=== PATIENT | male | born 1950 | race Caucasian/White ===

== ENCOUNTER 2018-02-14 13:45 | Outpatient (RCR) | payer MEDICARE, OTHER, SELFPAY ==
--- NOTE | 2018-01-21 06:32 | PT.OIE ---
Current Diagnoses Dorsalgia, unspecified (01/19/18) Past Surgical History Status post hernia repair Status post knee surgery Status post knee surgery Provider Visit Care Team Role Provider Type Ayan Adhikari MD Attending Provider Physician Primary Care Provider Specialty: [facility] Address: [address] [place] [address], [facility] Email: [email or web address] Physical Therapy Initial Evaluation PT-OP-A Visit Information Start: 01/19/18 08:38 Freq: Status: Active Protocol: Document 01/19/18 13:00 AMB (Rec: 01/19/18 16:04 AMB [email or web address]) Out-Patient Physical Therapy Visit Information Visit Information Visit Type Initial Evaluation Visit Start Time 13:00 Visit Stop Time 13:45 Total Visit Minutes 45 Visit Number 1 Evaluation Information Evaluation Date 01/19/18 PT-OP-B Current Condition Start: 01/19/18 08:38 Freq: Status: Active Protocol: Document 01/19/18 13:00 AMB (Rec: 01/19/18 13:19 AMB [id number]) Current Condition History of Current Condition Current Complaints Left low back pain after lifting a large pot into the car 2 months ago History of Current Condition History of some back pain, recently exacerbated, but getting better. 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 Prior Treatments and Tests X-ray of lumbar spine revealed degenerative disc disease. Treatment Goals Patient/Caregiver Goals Reduce back pain for return to gardening, golfing Prior Functional Status Baseline Function- ADL's Independent Baseline Function- Mobility Independent Current Functional Impairments (Reported) Functional Limitations- Recreation/ gardening, lifting, golf Hobbies Personal Factors Other Personal Factors That May Effect History of hernia surgery, Therapy/Recovery history of L ACL tear, and surgical removal of R meniscus . PT-OP-C Subjective Start: 01/19/18 08:38 Freq: Status: Active Protocol: Document 01/19/18 13:00 AMB (Rec: 01/19/18 16:18 AMB [email or web address]) OP-PT Subjective Patient Comments Patient Comments Pt reports he would perfer to only have a few appointments, as he just wants to make sure he is not going to hurt himself with his return to sport. Patient Reported Progress Improving Patient Questionnaires Oswestry Low Back Index Oswestry Score 10 Oswestry Impairment 1 to 19% Impaired (Score 1-19) OP-PT Pain Assessment Pain Assessment Grid Paper Pain Assessment Grid Completed Yes Location Left Back Intensity 3 Scale Used Numeric (1 - 10) Description- Other numby PT-OP-F Manual Assessment Start: 01/19/18 08:38 Freq: Status: Active Protocol: Document 01/19/18 13:00 AMB (Rec: 01/19/18 16:25 AMB [email or web address]) Manual Assessments Soft Tissue Assessment Soft Tissue Mobility Assessment Tenderness with palpation over L QL. No pain with palpation into gluteals. Joint Mobility Assessment Joint Mobility Assessment Stiffness with PAs throughout lumbar spine but do not reproduce pain. PT-OP-K Range of Motion Start: 01/19/18 08:38 Freq: Status: Active Protocol: Document 01/19/18 13:00 AMB (Rec: 01/19/18 16:23 AMB [email or web address]) Lumbar Spine Range of Motion Lumbar Spine Active Degrees Testing Position standing Comments all WFL and do not reproduce pain PT-OP-L Special Tests Start: 01/19/18 08:38 Freq: Status: Active Protocol: Document 01/19/18 13:00 AMB (Rec: 01/19/18 16:28 AMB [email or web address]) Special Tests Lumbar Spine Special Tests Vishal Test Results negative bilaterally Hip Special Tests ALICE Test Results negative bilaterally PT-OP-M Strength Start: 01/19/18 08:38 Freq: Status: Active Protocol: Document 01/19/18 13:00 AMB (Rec: 01/19/18 16:23 AMB [email or web address]) Hip Strength Hip Manual Muscle Testing Right Flexion (L2) 5 Normal Extension (S1) 4+ Good+ Abduction 4+ Good+ Adduction 4+ Good+ Left Flexion (L2) 5 Normal Extension (S1) 4 Good Abduction 4+ Good+ Adduction 4- Good- Knee Strength Knee Manual Muscle Testing Right Flexion (S2) 4+ Good+ Extension (L3) 4 Good Left Flexion (S2) 5 Normal Extension (L3) 5 Normal PT-OP-Q Treatments Start: 01/19/18 08:38 Freq: Status: Active Protocol: Document 01/19/18 13:00 AMB (Rec: 01/19/18 16:06 AMB [email or web address]) Therapeutic Exercises Supine Exercises 1 Supine Exercise Name supine biking Reps/Minutes x 20 Prone Exercises 2 Prone Exercise Name georgie pose with SB Side left Reps/Minutes 30 sec x 2 1 Prone Exercise Name quadruped hip extension Reps/Minutes x10 Comments vc to avoid lumbar hyperextension PT-OP-T Assessment and Plan Start: 01/19/18 08:38 Freq: Status: Active Protocol: Document 01/19/18 13:00 AMB (Rec: 01/21/18 06:32 AMB [email or web address]) Physical Therapy Assessment Rehab Potential Rehabilitation Potential Excellent Evaluation Complexity Number of Personal Factors/Comorbidities 1-2 Number of Body Systems Impaired 3 Clinical Presentation at Evaluation Stable Impairments Impairments Activity Tolerance Pain Strength Goals 2 Impairment Strength Short Term Goal (STG) The patient will be independent with his HEP for strengthening his core and hips. STG Duration 4 weeks 1 Impairment Return to activity Short Term Goal (STG) The patient will perform 1 hour of yardwork with 2/10 pain or less. STG Duration 4 weeks Stave And Bolt Equalizer Goal (LTG) The patient will practice his golf swing for 30 minutes with 2/10 pain or less. LTG Duration 8 weeks Assessment Summary Assessment The patient presents with left sided low back pain. Pain does not reproduce with spinal range of motion or spinal palpation, but does reproduce with deep palpation of left QL . As his pain is decreasing already we will see him every other week to oversee his return to sport and pain free activities safely without flare up. Physical Therapy Plan Frequency and Duration Frequency of Treatment Every Other Week Duration of Treatment 8 weeks Plan of Care Start Date 01/19/18 Plan of Care End Date 03/16/18 Therapeutic Interventions Therapeutic Interventions Aquatic Therapy Home Exercise Program Manual Therapy Neuromuscular Re-education Self-Care/Home Management Therapeutic Activities Therapeutic Exercises Modalities Cold Pack/Ice Massage Electric Stimulation Hot Packs Ultrasound Next Visit Focus/Plan Next Note Type Treatment Note Next Visit Plan Progress HEP Please Sign and Return: I have reviewed this Plan of Care and certify that the skilled therapy services above are required to meet the patient?s needs. Physician Signature Date Printed Name and Credentials Clinical Instructor Signature Printed Name and Credentials
--- NOTE | 2018-02-14 13:45 | PT.OTN ---
Current Diagnoses Dorsalgia, unspecified (02/14/18) Physical Therapy Treatment Note PT-OP-A Visit Information Start: 01/19/18 08:38 Freq: Status: Active Protocol: Document 02/14/18 13:45 AMB (Rec: 02/14/18 13:46 AMB [id number]) Out-Patient Physical Therapy Visit Information Visit Information Visit Type Treatment Note Visit Start Time 13:45 Visit Stop Time 14:30 Total Visit Minutes 45 Visit Number 2 Evaluation Information Evaluation Date 01/19/18 PT-OP-B Current Condition Start: 01/19/18 08:38 Freq: Status: Active Protocol: Document 01/19/18 13:00 AMB (Rec: 01/19/18 13:19 AMB [id number]) Current Condition History of Current Condition Current Complaints Left low back pain after lifting a large pot into the car 2 months ago History of Current Condition History of some back pain, recently exacerbated, but getting better. 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 Prior Treatments and Tests X-ray of lumbar spine revealed degenerative disc disease. Treatment Goals Patient/Caregiver Goals Reduce back pain for return to gardening, golfing Prior Functional Status Baseline Function- ADL's Independent Baseline Function- Mobility Independent Current Functional Impairments (Reported) Functional Limitations- Recreation/ gardening, lifting, golf Hobbies Personal Factors Other Personal Factors That May Effect History of hernia surgery, Therapy/Recovery history of L ACL tear, and surgical removal of R meniscus . PT-OP-C Subjective Start: 01/19/18 08:38 Freq: Status: Active Protocol: Document 02/14/18 13:45 AMB (Rec: 02/18/18 07:01 AMB [email or web address]) OP-PT Subjective Patient Comments Patient Comments The patient states that his back pain has continued to decrease, so that he can do everything (yardwork, practice golf swing) that he wants to do, his knees are more of a limiting factor at this point. His wrist did bother him with child's pose. PT-OP-F Manual Assessment Start: 01/19/18 08:38 Freq: Status: Active Protocol: Document 01/19/18 13:00 AMB (Rec: 01/19/18 16:25 AMB [email or web address]) Manual Assessments Soft Tissue Assessment Soft Tissue Mobility Assessment Tenderness with palpation over L QL. No pain with palpation into gluteals. Joint Mobility Assessment Joint Mobility Assessment Stiffness with PAs throughout lumbar spine but do not reproduce pain. PT-OP-K Range of Motion Start: 01/19/18 08:38 Freq: Status: Active Protocol: Document 01/19/18 13:00 AMB (Rec: 01/19/18 16:23 AMB [email or web address]) Lumbar Spine Range of Motion Lumbar Spine Active Degrees Testing Position standing Comments all WFL and do not reproduce pain PT-OP-L Special Tests Start: 01/19/18 08:38 Freq: Status: Active Protocol: Document 01/19/18 13:00 AMB (Rec: 01/19/18 16:28 AMB [email or web address]) Special Tests Lumbar Spine Special Tests Vishal Test Results negative bilaterally Hip Special Tests ALICE Test Results negative bilaterally PT-OP-M Strength Start: 01/19/18 08:38 Freq: Status: Active Protocol: Document 01/19/18 13:00 AMB (Rec: 01/19/18 16:23 AMB [email or web address]) Hip Strength Hip Manual Muscle Testing Right Flexion (L2) 5 Normal Extension (S1) 4+ Good+ Abduction 4+ Good+ Adduction 4+ Good+ Left Flexion (L2) 5 Normal Extension (S1) 4 Good Abduction 4+ Good+ Adduction 4- Good- Knee Strength Knee Manual Muscle Testing Right Flexion (S2) 4+ Good+ Extension (L3) 4 Good Left Flexion (S2) 5 Normal Extension (L3) 5 Normal PT-OP-Q Treatments Start: 01/19/18 08:38 Freq: Status: Active Protocol: Document 02/14/18 13:45 AMB (Rec: 02/18/18 07:01 AMB [email or web address]) Therapeutic Exercises Supine Exercises 2 Supine Exercise Name lower trunk rotation Reps/Minutes 30x2 1 Supine Exercise Name supine biking Reps/Minutes x 20 Prone Exercises 3 Prone Exercise Name thread the needle Reps/Minutes 4 min 2 Prone Exercise Name georgie pose with SB Side left Reps/Minutes 30 sec x 2 Standing Exercises 1 Standing Exercise Name wall squats Reps/Minutes 5x5 Therapeutic Activity Therapeutic Activity 1 Name yardwork Reps/Minutes 15 min Comments moving the ladder, lifting pots, engaging TrA in functional activities Manual Therapy Treatment Manual Traction Lumbar Details long axis L leg Comments with instruction of how his could help PT-OP-T Assessment and Plan Start: 01/19/18 08:38 Freq: Status: Active Protocol: Document 02/14/18 13:45 AMB (Rec: 02/18/18 07:01 AMB [email or web address]) Physical Therapy Assessment Goals 2 Impairment Strength Short Term Goal (STG) The patient will be independent with his HEP for strengthening his core and hips. MET STG Duration 4 weeks 1 Impairment Return to activity Short Term Goal (STG) The patient will perform 1 hour of yardwork with 2/10 pain or less. GOAL MET STG Duration 4 weeks [facility] Goal (LTG) The patient will practice his golf swing for 30 minutes with 2/10 pain or less. PT HAS NOT DONE THIS LATELY BUT FEELS THAT HE COULD DO IT LTG Duration 8 weeks Assessment Summary Assessment Discussed body mechanics of yardwork at length, and how to engage deep stabilization muscles before lifting ladder for example. If pt wants to return to sport he will need to be consistent with exercise , he admits he has a tendency to overdo and then give up. But he does feel he is back to his baseline at this time. Physical Therapy Plan Discharge Physical Therapy Discharge Reasons Goals Met Discharge Comments The patient feels that he is ready to be independent with an exercise program.
== END 2018-04-22 11:41 ==
LOC: PHYS 13:45
PROVIDERS: PCP Family Medicine; Visit Provider Family Medicine
DX: M54.9 Dorsalgia, unspecified (principal)
CPT/HCPCS: 97110; 97161; 97530

== ENCOUNTER → 2018-03-12 07:40 | Outpatient (CLI) | payer MEDICARE, OTHER, SELFPAY ==
[2018-03-12 09:28] LABS: Cholesterol 181 mg/dL (140-199); HDL Cholesterol 50 mg/dL (40-60); LDL Cholesterol Calculated 113 mg/dL (<100); Triglycerides 89 mg/dL (35-150)
== END ==
PROVIDERS: PCP Family Medicine; Visit Provider Family Medicine
DX: I10 Essential (primary) hypertension (principal)
CPT/HCPCS: 36415; 80061

== ENCOUNTER → 2018-11-02 15:09 | Outpatient (CLI) | payer MEDICARE, OTHER, SELFPAY ==
--- NOTE | 2018-11-02 15:15 | DI.RAD.S_ITS ---
PROCEDURE: XR WRIST LT MIN 3V INDICATIONS: left wrist pain TECHNIQUE: 3 views of the wrist were acquired. COMPARISON: None. FINDINGS: Bones: No fractures or dislocations. No suspicious bony lesions. Prominent calcific focus projects adjacent to or involves the dorsal cortex of the second metacarpal. First CMC and triscaphe joint degeneration. Soft tissues: No suspicious soft tissue calcifications. IMPRESSION: Mild left wrist osteoarthritis. Prominent calcification along the shaft of the proximal second metacarpal, possibly dystrophic calcification versus sessile exostosis. Dictated by: Can Tyson M.D. on 11/02/2018 at 15:59 Approved by: Can Tyson M.D. on 11/02/2018 at 16:31
== END ==
PROVIDERS: PCP Family Medicine; Visit Provider Family Medicine
DX: M25.532 Pain in left wrist (principal); M19.032 Primary osteoarthritis, left wrist
CPT/HCPCS: 73110

== ENCOUNTER → 2019-03-23 14:28 | Outpatient (CLI) | payer OTHER, MEDICARE, SELFPAY ==
--- NOTE | 2019-03-23 14:33 | DI.ECHO.S_ITS ---
[facility]---------+ [facility] +---------+ : : [address] [place] : : : : [id number] : : : : Phone: [phone]---------+ Echocardiogram Report + + :Name: GREGORY MORIN Study Date: 03/23/2019 Height: 70 in : :[facility] Weight: 150 lb : : Gender: Male BSA: 1.8 m2 : :: 1950 Age: 68 yrs BP: 132/82 mmHg: :Reason For Study: aortic root dilatation : :Ordering Physician: Dr. Botello : :[place] Performed By: Shereen Conde : + + Interpretation Summary The left ventricle is normal in size. The ejection fraction is estimated to be 55-60%. There has been no significant change in LVEF since the previous study. The right ventricle is normal in size and function. There is mild mitral regurgitation. Compared to the prior echo study, there has been no change in the severity of mitral regurgitation. There is mild aortic regurgitation. Compared to the prior echo study, there has been an increase in the severity of aortic regurgitation. The aortic root is mildly dilated. 4.3 cm in diameter. In May 2017 it was 4.2 cm. The ascending aorta is mildly enlarged. 3.7 cm in diameter. No significant change from the previous study. The patient was in sinus bradycardia with heart rates between 45-50 bpm during the exam. Procedure: A two-dimensional transthoracic echocardiogram with color flow and Doppler was performed. The study quality was technically adequate. Comparison is made with the echocardiogram of 06/15/2017. The patient was in sinus bradycardia with heart rates between 45-50 bpm during the exam. Left Ventricle: Proximal septal thickening is noted. The left ventricle is normal in size. There is normal left ventricular wall thickness. There is no thrombus. The ejection fraction is estimated to be 55-60%. There has been no significant change since the previous study. There are no focal wall motion abnormalities. Diastolic parameters suggest probable normal left ventricular diastolic function and normal filling pressures. Right Ventricle: The right ventricle is normal in size and function. Atria: The left atrium is mildly dilated. The left atrium has mildly decreased in size since the prior echo exam. Right atrial size is normal. There is no Doppler evidence for an interatrial shunt. Mitral Valve: There is mild mitral annular calcification. Redundant elongated chordae are noted. There is mild mitral regurgitation. Compared to the prior echo study, there has been no change in the severity of mitral regurgitation. Aortic Valve: The aortic valve is trileaflet. The aortic valve opens well. There is mild aortic regurgitation. Compared to the prior echo study, there has been an increase in the severity of aortic regurgitation. Tricuspid Valve: The tricuspid valve leaflets are thin and pliable. There is a trace or physiologic amount of tricuspid regurgitation. The right ventricular systolic pressure is estimated to be at least 21 mmHg based on an estimated right atrial pressure of 3 mm Hg. Pulmonic Valve: The pulmonic valve leaflets are thin and pliable; valve motion is normal. There is trace pulmonic regurgitation. Great Vessels: The aortic root is mildly dilated. The ascending aorta is mildly enlarged. The aortic arch is normal in size. The IVC is of normal diameter and collapses greater than 50% with a sniff. This suggests a low right atrial pressure of 3 mm Hg. Pericardium/ Pleura There is no pericardial effusion. MMode/2D Measurements & Calculations LVIDd: 4.6 cm LVOT diam: 2.2 cm LVIDs: 2.8 cm Ao root diam: 4.3 cm FS: 39.8 % Aortic Jxn: 3.1 cm EPSS: 0.21 cm asc Aorta Diam: 3.7 cm IVSd: 1.0 cm Ao Arch Diam (Prox Trans): 2.7 cm LVPWd: 1.0 cm LV garcia. diameter/BSA (cm/m^2): 2.5 LV sys. diameter/BSA (cm/m^2): 1.5 LA A2 area: 21.2 cm2 RA long axis: 5.5 cm LA A4 area: 21.3 cm2 RA area: 19.5 cm2 LA length (vol): 5.5 cm RA vol: 58.3 ml LA vol: 69.1 ml RA : 31.6 ml/m2 LA vol index: 37.4 ml/m2 IVC diam: 1.3 cm RVD1 (basal): 3.9 cm RVD2 (mid): 2.7 cm TAPSE: 3.3 cm Doppler Measurements & Calculations Ao V2 max: 107.1 cm/sec LVOT Max Neftaly: 95.7 cm/sec Ao V2 mean: 75.3 cm/sec LV V1 max P.7 mmHg Ao max P.6 mmHg LV V1 VTI: 24.8 cm Ao mean P.5 mmHg BRIANA(I,D): 3.4 cm2 Ao V2 VTI: 27.8 cm BRIANA(V,D): 3.4 cm2 sev ratio: 0.89 BRIANA indexed to BSA (cm^2/m^2): 1.8 MV E max neftaly: 72.8 cm/sec TR max neftaly: 212.8 cm/sec MV A max neftaly: 44.6 cm/sec TR max P.1 mmHg MV E/A: 1.6 PA V2 max: 62.7 cm/sec Med Peak E' Neftaly: 8.1 cm/sec PA V2 mean: 46.7 cm/sec E/E' med: 9.0 PA mean P.97 mmHg Lat Peak E' Neftaly: 10.1 cm/sec PA Accel Time: 0.17 sec E/E' lat: 7.2 E/e' average: 8.1 MV dec time: 0.22 sec MV P1/2t: 65.2 msec MV P1/2t max neftaly: 73.2 cm/sec SV(LVOT): 93.5 ml MVA(P1/2t): 3.4 cm2 Reading Physician:11:43 AM
== END ==
PROVIDERS: PCP Family Medicine; Referring Provider Specialist; Visit Provider Family Medicine
DX: I08.0 Rheumatic disorders of both mitral and aortic valves (principal); I77.810 Thoracic aortic ectasia; R00.1 Bradycardia, unspecified
CPT/HCPCS: 93306

== ENCOUNTER → 2019-03-31 06:58 | Outpatient (CLI) | payer OTHER, SELFPAY ==
[2019-03-31 07:54] LABS: Add Manual Diff / Slide Review NO; Basophils Absolute Auto 0 /uL (0-100); Basophils Percent Auto 0.8 % (0-2); Eosinophils Absolute Auto 100 /uL (0-450); Eosinophils Percent Auto 2.3 % (2-4); Hematocrit 45.2 % (41-53); Hemoglobin 15.8 g/dL (13.5-17.5); Lymphocytes Absolute Auto 1900 /uL (1100-4500); Lymphocytes Percent Auto 35.6 % (25-40); Mean Corpuscular HGB Conc 34.9 % (30-36); Mean Corpuscular Volume 88.8 fL (80-100); Monocytes Absolute Auto 600 /uL (0-900); Monocytes Percent Auto 11.6 % (3-14); Neutrophils Absolute Auto 2700 /uL (1500-7000); Neutrophils Percent Auto 49.7 % (50-75); Platelet Count 202 X10^3/uL (150-400); Red Blood Cell Count 5.09 X10^6/uL (4.5-5.9); Red Cell Distribution Width 12.6 % (11.6-14.8); White Blood Cell Count 5.4 X10^3/uL (4.5-11.0)
[2019-03-31 08:22] LABS: Alanine Aminotransferase 33 IU/L (21-72); Albumin 4.4 g/dL (3.5-5.0); Albumin Globulin Ratio 1.5 (1.0-2.8); Alkaline Phosphatase 54 U/L (38-126); Aspartate Aminotransferase 33 IU/L (17-59); BUN Creatinine Ratio 17.5 (6-22); Bilirubin Total 0.8 mg/dL (0.2-1.3); Blood Urea Nitrogen 14 mg/dL (9-20); Calcium 9.5 mg/dL (8.4-10.2); Carbon Dioxide 30 mmol/L (22-32); Chloride 104 mmol/L (98-107); Cholesterol 128 mg/dL (140-199); Estimated Glomerular Filt Rate > 60.0 mL/min (>60); Globulin 2.9 g/dL (1.7-4.1); Glucose 93 mg/dL (80-110); HDL Cholesterol 51 mg/dL (40-60); HEMOLYSIS < 15 (0-50); LDL Cholesterol Calculated 64 mg/dL (<100); Potassium 4.5 mmol/L (3.4-5.1); Sodium 142 mmol/L (137-145); Total Protein 7.3 g/dL (6.3-8.2); Triglycerides 65 mg/dL (35-150)
[2019-03-31 08:51] LABS: Prostate Specific Antigen Scrn 3.06 ng/mL (0.1-4.0)
[2019-03-31 08:55] LABS: TSH w/ Reflex to FT4 1.62 uIU/mL (0.47-4.68)
== END ==
PROVIDERS: PCP Family Medicine; Visit Provider Family Medicine
DX: E78.2 Mixed hyperlipidemia (principal); I10 Essential (primary) hypertension; Z12.5 Encounter for screening for malignant neoplasm of prostate
CPT/HCPCS: 36415; 80053; 80061; 84443; 85025; G0103

== ENCOUNTER → 2020-03-20 08:03 | Outpatient (CLI) | payer OTHER, MEDICARE, SELFPAY ==
--- NOTE | 2020-03-20 08:07 | DI.RAD.S_ITS ---
PROCEDURE: XR KNEE LT 4V INDICATIONS: knee pain TECHNIQUE: 4 views of the knee were acquired. COMPARISON: None. FINDINGS: Bones: No fractures or dislocations. No suspicious bony lesions. Mild tricompartmental osteoarthritis with marginal osteophytosis. Soft tissues: No joint effusion. No suspicious soft tissue calcifications. IMPRESSION: Mild tricompartmental osteoarthritis. Dictated by: Mary Kay Miller MD, PhD on 03/20/2020 at 17:40 Approved by: Mary Kay Miller MD, PhD on 03/20/2020 at 17:41
--- NOTE | 2020-03-20 08:07 | DI.RAD.S_ITS ---
PROCEDURE: XR KNEE RT 4V INDICATIONS: knee pain TECHNIQUE: 4 views of the knee were acquired. COMPARISON: None. FINDINGS: Bones: No fractures or dislocations. No suspicious bony lesions. Severe tricompartmental osteoarthritis with joint space narrowing, subchondral sclerosis and marginal osteophytosis. Soft tissues: No joint effusion. No suspicious soft tissue calcifications. IMPRESSION: Severe tricompartmental osteoarthritis. Dictated by: Mary Kay Miller MD, PhD on 03/20/2020 at 17:39 Approved by: Mary Kay Miller MD, PhD on 03/20/2020 at 17:40
== END ==
PROVIDERS: PCP Family Medicine; Referring Provider Family Medicine; Visit Provider Family Medicine
DX: M25.561 Pain in right knee (principal); M25.562 Pain in left knee; M17.0 Bilateral primary osteoarthritis of knee
CPT/HCPCS: 73564

== ENCOUNTER → 2021-03-07 13:38 | Outpatient (CLI) | payer OTHER, SELFPAY ==
--- NOTE | 2021-03-07 13:56 | DI.ECHO.S_ITS ---
:Reason For Study: Aortic, Ascending Aneurysm : :Ordering Physician: ELAINE : :TARAS Performed By: Leoncio Leos : :Referring: TARAS HENRY : + + Interpretation Summary The left ventricle is normal in size and wall thickness. Left ventricular systolic function is normal. The ejection fraction is estimated to be 60-65%. There are no focal wall motion abnormalities. Diastolic parameters suggest probable normal left ventricular diastolic function and normal filling pressures. The right ventricle is normal in size and function. Pulmonary artery pressures cannot be estimated because of the lack of a measurable TR jet velocity but the IVC suggests a CVP of around 3 mmHg. Both atria are normal in size. There is mild mitral regurgitation. There is mild aortic regurgitation. There is no other significant valvular heart disease. The aortic root is mildly dilated. The ascending aorta is mildly enlarged. No significant changes since prior study. Procedure: A two-dimensional transthoracic echocardiogram with color flow and Doppler was performed. The study quality was technically adequate. Comparison is made with the echocardiogram of 03/23/2019. Left Ventricle: The left ventricle is normal in size and wall thickness. Left ventricular systolic function is normal. The ejection fraction is estimated to be 60-65%. There are no focal wall motion abnormalities. Diastolic parameters suggest probable normal left ventricular diastolic function and normal filling pressures. Right Ventricle: The right ventricle is normal in size and function. Atria: Both atria are normal in size. There is no Doppler evidence for an interatrial shunt. Mitral Valve: The mitral valve is normal in structure and function. There is mild mitral regurgitation. Aortic Valve: The aortic valve is normal in structure and function. There is mild aortic regurgitation. Tricuspid Valve: The tricuspid valve is normal in structure and function. No tricuspid regurgitation. Pulmonary artery pressures cannot be estimated because of the lack of a measurable TR jet velocity but the IVC suggests a CVP of around 3 mmHg. Pulmonic Valve: The pulmonic valve is normal in structure and function. There is trace pulmonic regurgitation. There is no other significant valvular heart disease. Great Vessels: The aortic root is mildly dilated. The ascending aorta is mildly enlarged. The IVC is of normal diameter and collapses greater than 50% with a sniff. This suggests a low right atrial pressure of 3 mm Hg. Pericardium/ Pleura There is no pericardial effusion. There is no pleural effusion. MMode/2D Measurements & Calculations LVIDd: 4.9 cm LVOT diam: 2.1 cm LVIDs: 3.1 cm Ao root diam: 4.1 cm FS: 36.6 % asc Aorta Diam: 3.6 cm IVSd: 0.78 cm LVPWd: 0.75 cm LV garcia. diameter/BSA (cm/m^2): 2.7 LV sys. diameter/BSA (cm/m^2): 1.7 LA A2 area: 16.2 cm2 RA long axis: 5.0 cm LA A4 area: 18.7 cm2 RA area: 14.3 cm2 LA length (vol): 5.4 cm RA vol: 35.1 ml LA vol: 47.8 ml RA : 18.9 ml/m2 LA vol index: 25.7 ml/m2 IVC diam: 1.8 cm TAPSE: 2.7 cm Doppler Measurements & Calculations Ao V2 max: 134.5 cm/sec LVOT Max Neftaly: 125.4 cm/sec Ao V2 mean: 95.6 cm/sec LV V1 max P.3 mmHg Ao max P.2 mmHg LV V1 VTI: 29.1 cm Ao mean P.0 mmHg BRIANA(I,D): 3.5 cm2 Ao V2 VTI: 29.5 cm BRIANA(V,D): 3.3 cm2 sev ratio: 0.99 BRIANA indexed to BSA (cm^2/m^2): 1.9 MV E max neftaly: 73.1 cm/sec PA pr(Accel): 34.5 mmHg MV A max neftaly: 42.9 cm/sec MV E/A: 1.7 Med Peak E' Neftaly: 10.6 cm/sec E/E' med: 6.9 Lat Peak E' Neftaly: 11.4 cm/sec E/E' lat: 6.4 E/e' average: 6.7 MV dec time: 0.22 sec SV(LVOT): 103.3 ml Reading Physician:04:52 PM
== END ==
PROVIDERS: PCP Family Medicine; Referring Provider Family Medicine; Visit Provider Family Medicine
DX: I71.2 Thoracic aortic aneurysm, without rupture (principal); I08.0 Rheumatic disorders of both mitral and aortic valves
CPT/HCPCS: 93306

== ENCOUNTER → 2021-03-24 07:01 | Outpatient (CLI) | payer OTHER, SELFPAY ==
[2021-03-24 08:38] LABS: Add Manual Diff / Slide Review NO; Basophils Absolute Auto 0 /uL (0-100); Basophils Percent Auto 0.8 % (0-2); Eosinophils Absolute Auto 100 /uL (0-450); Eosinophils Percent Auto 2.8 % (2-4); Hematocrit 44.1 % (41-53); Hemoglobin 15.3 g/dL (13.5-17.5); Lymphocytes Absolute Auto 1500 /uL (1100-4500); Lymphocytes Percent Auto 28.9 % (25-40); Mean Corpuscular HGB Conc 34.6 % (30-36); Mean Corpuscular Hemoglobin 30.4 PG (26-34); Mean Corpuscular Volume 87.9 fL (80-100); Monocytes Absolute Auto 600 /uL (0-900); Monocytes Percent Auto 11.6 % (3-14); Neutrophils Absolute Auto 2800 /uL (1500-7000); Neutrophils Percent Auto 55.9 % (50-75); Platelet Count 214 X10^3/uL (150-400); Red Blood Cell Count 5.01 X10^6/uL (4.5-5.9); Red Cell Distribution Width 12.5 % (11.6-14.8); White Blood Cell Count 5.1 X10^3/uL (4.5-11.0)
[2021-03-24 08:40] LABS: Alanine Aminotransferase 24 IU/L (<50); Albumin 4.2 g/dL (3.5-5.0); Albumin Globulin Ratio 1.6 (1.0-2.8); Alkaline Phosphatase 62 U/L (38-126); Aspartate Aminotransferase 34 IU/L (17-59); BUN Creatinine Ratio 18.9 (6-22); Bilirubin Total 0.8 mg/dL (0.2-1.3); Blood Urea Nitrogen 14 mg/dL (9-20); Calcium 9.2 mg/dL (8.4-10.2); Carbon Dioxide 27 mmol/L (22-32); Chloride 105 mmol/L (98-107); Cholesterol 120 mg/dL (140-199); Estimated Glomerular Filt Rate > 60.0 mL/min (>60); Globulin 2.7 g/dL (1.7-4.1); Glucose 88 mg/dL (80-110); HDL Cholesterol 46 mg/dL (40-60); HEMOLYSIS 17 (0-50); LDL Cholesterol Calculated 60 mg/dL (<100); Sodium 138 mmol/L (137-145); Total Protein 6.9 g/dL (6.3-8.2); Triglycerides 69 mg/dL (35-150)
[2021-03-24 09:01] LABS: Creatinine Urine Random 79.3 mg/dL
[2021-03-24 09:06] LABS: Microalbumin Urine Random < 0.6 mg/dL (0-1.6)
[2021-03-24 09:07] LABS: Prostate Specific Antigen Scrn 3.81 ng/mL (0.1-4.0)
[2021-03-24 09:13] LABS: Thyroid Stimulating Hormone 0.825 uIU/mL (0.47-4.68)
[2021-03-29 13:16] LABS: Percent Free Testosterone 3.26 % (1.50-4.20); Testosterone Free 14.62 ng/dL (5.00-21.00); Testosterone Total 448.6 ng/dL (264.0-916.0)
== END ==
PROVIDERS: PCP Family Medicine; Referring Provider Family Medicine; Visit Provider Family Medicine
DX: E78.2 Mixed hyperlipidemia (principal); Z12.5 Encounter for screening for malignant neoplasm of prostate; G47.39 Other sleep apnea; G47.411 Narcolepsy with cataplexy; I10 Essential (primary) hypertension; L65.9 Nonscarring hair loss, unspecified; N40.1 Benign prostatic hyperplasia with lower urinary tract symptoms
CPT/HCPCS: 36415; 80053; 80061; 82043; 82570; 84402; 84403; 84443; 85025; G0103

== ENCOUNTER → 2021-05-28 10:12 | Outpatient (CLI) | payer OTHER, SELFPAY ==
--- NOTE | 2021-05-28 10:14 | DI.RAD.S_ITS ---
PROCEDURE: XR HAND LT MIN 3V INDICATIONS: pain MCP DIP middle finger decreased ROM, pain L wrist TECHNIQUE: 3 views of the hand(s) acquired. COMPARISON: None. FINDINGS: Bones: No acute, displaced fracture. Ossific area arising from the ulnar aspect of the 2nd metacarpal. Carpal bones are normally aligned. Soft tissues: No suspicious soft tissue calcifications. IMPRESSION: 1. No acute osseous abnormality. 2. Ossific area arising from the ulnar aspect of the 2nd metacarpal, which may reflect prior traumatic injury or exostosis. Dictated by: Jamil Davenport M.D. on 05/28/2021 at 10:35 Approved by: Jamil Davenport M.D. on 05/28/2021 at 10:41
--- NOTE | 2021-05-28 10:14 | DI.RAD.S_ITS ---
PROCEDURE: XR WRIST LT MIN 3V INDICATIONS: pain MCP DIP middle finger decreased ROM, pain L wrist TECHNIQUE 3 views of the wrist were acquired. COMPARISON: [facility], CR, XR WRIST LT MIN 3V, 11/02/2018, 15:20. FINDINGS: Bones: No acute, displaced fracture or dislocation. No suspicious bony lesions. Soft tissues: No suspicious soft tissue calcifications. IMPRESSION: No acute osseous abnormality. Dictated by: Jamil Davenport M.D. on 05/28/2021 at 10:41 Approved by: Jamil Davenport M.D. on 05/28/2021 at 10:43
== END ==
PROVIDERS: PCP Family Medicine; Referring Provider Physician Assistant; Visit Provider Physician Assistant
DX: M25.532 Pain in left wrist (principal); M79.645 Pain in left finger(s)
CPT/HCPCS: 73110; 73130

== ENCOUNTER → 2022-03-25 06:47 | Outpatient (CLI) | payer OTHER, SELFPAY ==
[2022-03-25 08:06] LABS: Hematocrit 43.5 % (41-53); Mean Corpuscular HGB Conc 34.5 % (30-36); Mean Corpuscular Hemoglobin 30.5 PG (26-34); Mean Corpuscular Volume 88.5 fL (80-100); Platelet Count 230 X10^3/uL (150-400); Red Blood Cell Count 4.92 X10^6/uL (4.5-5.9); Red Cell Distribution Width 12.7 % (11.6-14.8); White Blood Cell Count 5.3 X10^3/uL (4.5-11.0)
[2022-03-25 08:43] LABS: Alanine Aminotransferase 22 IU/L (<50); Albumin 4.2 g/dL (3.5-5.0); Albumin Globulin Ratio 1.8 (1.0-2.8); Alkaline Phosphatase 60 U/L (38-126); Aspartate Aminotransferase 28 IU/L (17-59); BUN Creatinine Ratio 20.8 (6-22); Bilirubin Total 0.7 mg/dL (0.2-1.3); Blood Urea Nitrogen 16 mg/dL (9-20); Carbon Dioxide 28 mmol/L (22-32); Chloride 104 mmol/L (98-107); Cholesterol 124 mg/dL (140-199); Estimated Glomerular Filt Rate > 60 mL/min (>60); Globulin 2.4 g/dL (1.7-4.1); Glucose 89 mg/dL (80-110); HDL Cholesterol 48 mg/dL (40-60); HEMOLYSIS < 15 (0-50); LDL Cholesterol Calculated 62 mg/dL (<100); Potassium 4.4 mmol/L (3.4-5.1); Sodium 140 mmol/L (137-145); Total Protein 6.6 g/dL (6.3-8.2); Triglycerides 71 mg/dL (35-150)
[2022-03-25 08:59] LABS: Prostate Specific Antigen 3.94 ng/mL (0.10-4.00); TSH w/ Reflex to FT4 1.38 uIU/mL (0.47-4.68)
== END ==
PROVIDERS: PCP Internal Medicine; Referring Provider Internal Medicine; Visit Provider Internal Medicine
DX: E78.2 Mixed hyperlipidemia (principal); N40.1 Benign prostatic hyperplasia with lower urinary tract symptoms; I10 Essential (primary) hypertension; I71.2 Thoracic aortic aneurysm, without rupture
CPT/HCPCS: 36415; 80053; 80061; 84153; 84443; 85027

== ENCOUNTER → 2022-06-13 07:49 | Outpatient (CLI) | payer OTHER, SELFPAY ==
[2022-06-13 09:39] LABS: BUN Creatinine Ratio 14.6 (6-22); Blood Urea Nitrogen 12 mg/dL (9-20); Calcium 9.3 mg/dL (8.4-10.2); Carbon Dioxide 30 mmol/L (22-32); Chloride 101 mmol/L (98-107); Estimated Glomerular Filt Rate > 60 mL/min (>60); Glucose 88 mg/dL (80-110); HEMOLYSIS < 15 (0-50); Potassium 4.6 mmol/L (3.4-5.1); Sodium 141 mmol/L (137-145)
== END ==
PROVIDERS: PCP Internal Medicine; Referring Provider Internal Medicine; Visit Provider Internal Medicine
DX: Z01.812 Encounter for preprocedural laboratory examination (principal)
CPT/HCPCS: 36415; 80048

== ENCOUNTER → 2023-04-12 12:22 | Outpatient (CLI) | payer OTHER, SELFPAY ==
[2023-04-12 13:44] LABS: Aspartate Aminotransferase 32 IU/L (17-59); BUN Creatinine Ratio 21.4 (6-22); Blood Urea Nitrogen 15 mg/dL (9-20); Calcium 9.5 mg/dL (8.4-10.2); Carbon Dioxide 26 mmol/L (22-32); Chloride 103 mmol/L (98-107); Cholesterol 142 mg/dL (140-199); Estimated Glomerular Filt Rate > 60 mL/min (>60); Glucose 86 mg/dL (80-110); HDL Cholesterol 51 mg/dL (40-60); HEMOLYSIS < 15 (0-50); LDL Cholesterol Calculated 79 mg/dL (<100); Potassium 4.5 mmol/L (3.4-5.1); Sodium 137 mmol/L (137-145); Triglycerides 62 mg/dL (35-150)
[2023-04-12 14:12] LABS: Prostate Specific Antigen 7.33 ng/mL (0.10-4.00)
== END ==
PROVIDERS: PCP Internal Medicine; Referring Provider Internal Medicine; Visit Provider Internal Medicine
DX: E78.2 Mixed hyperlipidemia (principal); N40.1 Benign prostatic hyperplasia with lower urinary tract symptoms; I10 Essential (primary) hypertension
CPT/HCPCS: 36415; 80048; 80061; 84153; 84450

== ENCOUNTER → 2023-04-20 08:19 | Outpatient (CLI) | payer OTHER, SELFPAY ==
[2023-04-21 09:01] LABS: PSA Free % 21.7 % (.); PSA, Total 4.8 ng/mL (0.0-4.0)
== END ==
PROVIDERS: PCP Internal Medicine; Referring Provider Internal Medicine; Visit Provider Internal Medicine
DX: R97.20 Elevated prostate specific antigen [PSA] (principal)
CPT/HCPCS: 36415; 84153; 84154

== ENCOUNTER → 2023-04-28 07:02 | Outpatient (CLI) | payer OTHER, SELFPAY ==
--- NOTE | 2023-04-28 07:03 | DI.ECHO.S_ITS ---
[place] +---------+ : : [address] : [place] : : : : [id number] : : : : Phone: [phone]+ Echocardiogram Report + + :Name: GREGORY MORIN Study Date: 04/28/2023 Height: 70 in : :[facility] ReadingLocation: Weight: 150 lb : : Gender: Male BSA: 1.8 m2 : :: 1950 Age: 72 yrs BP: 152/86 mmHg: :Reason For Study: THORACIC ANEURYSM : :Ordering Physician: MARILEE, : :NILES Performed By: Stella Newberry : :Referring: NILES HUNT : + + Interpretation Summary The left ventricle is normal in size and wall thickness. The ejection fraction is estimated to be 60-65%. Left ventricular wall motion is normal. Diastolic parameters suggest probable normal left ventricular diastolic function and normal filling pressures. The right ventricle is normal in size and function. The left atrial size is normal. There is mild mitral regurgitation. There is mild aortic regurgitation. The aortic root is mildly dilated. The ascending aorta is mildly enlarged. Aortic measurements have not changed significantly. Procedure: A two-dimensional transthoracic echocardiogram with color flow and Doppler was performed. The study quality was technically adequate. Comparison is made with the echocardiogram of 03/07/2021. The patient was in sinus bradycardia with heart rates between 47-55 bpm during the exam. Left Ventricle: The left ventricle is normal in size and wall thickness. The ejection fraction is estimated to be 60-65%. Left ventricular wall motion is normal. Diastolic parameters suggest probable normal left ventricular diastolic function and normal filling pressures. Right Ventricle: The right ventricle is normal in size and function. Atria: The left atrial size is normal. Right atrial size is normal. There is no Doppler evidence for an interatrial shunt. Mitral Valve: The mitral valve is normal in structure and function. There is mild mitral regurgitation. Aortic Valve: The aortic valve is normal in structure and function. The aortic valve is trileaflet. There is no aortic valve stenosis. There is mild aortic regurgitation. Tricuspid Valve: The tricuspid valve is normal in structure and function. There is a trace or physiologic amount of tricuspid regurgitation. Pulmonic Valve: The pulmonic valve leaflets are thin and pliable; valve motion is normal. There is trace pulmonic regurgitation. Great Vessels: The aortic root is mildly dilated. The ascending aorta is mildly enlarged. The IVC is of normal diameter and collapses greater than 50% with a sniff. This suggests a low right atrial pressure of 3 mm Hg. Pericardium/ Pleura There is no pericardial effusion. There is no pleural effusion. MMode/2D Measurements & Calculations LVIDd: 4.2 cm LVOT diam: 2.3 cm LVIDs: 2.5 cm Ao root diam: 4.1 cm FS: 39.2 % asc Aorta Diam: 3.6 cm IVSd: 1.0 cm Ao Arch Diam (Prox Trans): 2.8 cm LVPWd: 0.88 cm LV garcia. diameter/BSA (cm/m^2): 2.3 LV sys. diameter/BSA (cm/m^2): 1.4 LA A2 area: 22.1 cm2 RA long axis: 5.2 cm LA A4 area: 15.6 cm2 RA area: 15.7 cm2 LA length (vol): 5.6 cm RA vol: 40.1 ml LA vol: 52.1 ml RA : 21.7 ml/m2 LA vol index: 28.2 ml/m2 IVC diam: 1.1 cm RVD1 (basal): 3.8 cm RVD2 (mid): 2.8 cm TAPSE: 2.8 cm Doppler Measurements & Calculations Ao V2 max: 129.0 cm/sec LVOT Max Neftaly: 109.0 cm/sec Ao V2 mean: 96.5 cm/sec LV V1 max P.8 mmHg Ao max P.7 mmHg LV V1 VTI: 28.1 cm Ao mean P.0 mmHg BRIANA(I,D): 3.9 cm2 Ao V2 VTI: 29.8 cm BRIANA(V,D): 3.5 cm2 sev ratio: 0.94 BRIANA indexed to BSA (cm^2/m^2): 2.1 MV E max neftaly: 75.9 cm/sec PA V2 max: 72.3 cm/sec MV A max neftaly: 46.7 cm/sec PA V2 mean: 49.6 cm/sec MV E/A: 1.6 PA mean P.1 mmHg Med Peak E' Neftaly: 8.8 cm/sec PA pr(Accel): 22.5 mmHg E/E' med: 8.7 Lat Peak E' Neftaly: 10.0 cm/sec E/E' lat: 7.6 E/e' average: 8.1 MV dec time: 0.21 sec SV(LVOT): 117.0 ml Reading Physician:08:43 AM
== END ==
PROVIDERS: PCP Internal Medicine; Referring Provider Internal Medicine; Visit Provider Internal Medicine
DX: I08.0 Rheumatic disorders of both mitral and aortic valves; I71.20 Thoracic aortic aneurysm, without rupture, unspecified; I77.89 Other specified disorders of arteries and arterioles
CPT/HCPCS: 93306

== ENCOUNTER → 2023-08-09 07:12 | Outpatient (CLI) | payer OTHER, SELFPAY ==
[2023-08-11 15:57] LABS: PSA Free % 29.7 % (.); PSA, Total 3.3 ng/mL (0.0-4.0)
== END ==
PROVIDERS: PCP Internal Medicine; Referring Provider Internal Medicine; Visit Provider Internal Medicine
DX: R97.20 Elevated prostate specific antigen [PSA] (principal)
CPT/HCPCS: 36415; 84153; 84154

== ENCOUNTER → 2024-01-31 11:05 | Outpatient (CLI) | payer OTHER, SELFPAY ==
[2024-02-01 11:36] LABS: PSA Free % 33.9 % (.); PSA, Total 3.8 ng/mL (0.0-4.0)
== END ==
LOC: LAB 11:06
PROVIDERS: PCP Internal Medicine; Referring Provider Internal Medicine; Visit Provider Internal Medicine
DX: R97.20 Elevated prostate specific antigen [PSA] (principal)
CPT/HCPCS: 36415; 84153; 84154

== ENCOUNTER → 2024-04-14 15:57 | Outpatient (CLI) | payer OTHER, SELFPAY ==
[2024-04-14 16:45] LABS: Aspartate Aminotransferase 32 IU/L (17-59); BUN Creatinine Ratio 22.2 (6-22); Blood Urea Nitrogen 18 mg/dL (9-20); Calcium 9.6 mg/dL (8.4-10.2); Carbon Dioxide 29 mmol/L (22-32); Chloride 101 mmol/L (98-107); Cholesterol 124 mg/dL (140-199); Estimated Glomerular Filt Rate > 60 mL/min (>60); Glucose 105 mg/dL (80-110); HDL Cholesterol 52 mg/dL (40-60); HEMOLYSIS < 15 (0-50); LDL Cholesterol Calculated 53 mg/dL (<100); Potassium 4.4 mmol/L (3.4-5.1); Sodium 137 mmol/L (137-145); Triglycerides 96 mg/dL (35-150)
== END ==
PROVIDERS: PCP Internal Medicine; Referring Provider Internal Medicine; Visit Provider Internal Medicine
DX: I10 Essential (primary) hypertension (principal); E78.2 Mixed hyperlipidemia
CPT/HCPCS: 36415; 80048; 80061; 84450

== ENCOUNTER → 2024-06-20 08:46 | Outpatient (CLI) | payer OTHER, SELFPAY ==
--- NOTE | 2024-06-20 12:50 | ST.SWALLOW ---
Visit Care Team Role Provider Type Elvin Soto MD Attending Provider Physician Family Provider Primary Care Provider Referring Provider Specialty: Internal Medicine Address: [address] [place] [address], [id number] Email: [email or web address] Modified Barium Swallow Study HAIR BALER Modified Barium Swallow Study Start: 06/20/24 10:09 Freq: Status: Active Protocol: Document 06/20/24 10:10 LNK (Rec: 06/20/24 10:44 LNK [id number]) Modified Barium Swallow Study Total Time Visit Start Time 09:00 Visit Stop Time 09:30 Total Visit Minutes [address] Washburn ENT; PCP is Dr Soto Reason for Referral dysphagia Setting Setting Outpatient Care Patient Information Identification Type Name,Date of Patient History Pt seen for a Modified Barium Swallow Study (MBSS) at the referral of ANA Yee. Pt c/o swallow difficulties that include a sensation of foods sticking in his throat ( points to larynx and the sternal area). Pt was recently seen for a swallow screen on 05/30/2024 and was referred for MBSS at that time. Pt reported prior MBSS 8 years ago; a Barium Swallow was conducted in 2017 that noted laryngeal penetration. Pt had seen GI and underwent EGD in 2017. Pt reported that at that time, esophageal dilation occurred ( e.g., they used a balloon to open the esophagus). Pt has PMH that includes GERD (not medicated), PND, dysphagia, COVID (03/15) and surgical release of tongue-tie 3 years ago. Subjective Observations Pt was seated in the fluoroscopy chair with directions and procedures described for him. He indicated he understood and agreed to proceed. Patient Positioning Position View Lat-A/P Imaging Lateral View Textures Administered Trials Presented Thin Liquid via Spoon (IDDSI 0 ),Thin Liquid via Cup (IDDSI 0 ),Extremely Thick Liquid via Spoon (IDDSI 4),Regular (IDDSI 7) Barium Tablet Yes The IDDSI Framework Protocol: IDDSI.1 Oral Impairment Source: The Modified Barium Swallow Impairment Profile (MBSImP??) Lip Closure No labial escape Tongue Control During Bolus Hold Cohesive bolus between tongue to palatal seal Bolus Preparation/Mastication Timely & efficient chewing & mashing Bolus Transport/Lingual Motion Brisk tongue motion Initiation of Pharyngeal Swallow Bolus head in valleculae Additional Oral Impairment Observations *OME and DKS were observed to be WNL. *Dentition natural and in good hygiene *Mastication observed with rotary chew pattern. *Good bolus formation, control and AP transition. Pharyngeal Impairment Source: The Modified Barium Swallow Impairment Profile (MBSImP??) Soft Palate Elevation No bolus between soft palate & pharyngeal wall Laryngeal Elevation Comp.sup.move.thyroid cart.w/ comp.approx.arytenoids to epiglot petiole Anterior Hyoid Excursion Complete anterior movement Epiglottic Movement Partial inversion Laryngeal Vestibular Closure Incomplete; narrow column air/ contrast in laryngeal vestibule Pharyngeal Residue Collection of residue within/ on pharyngeal structures Location Diffuse (>3 areas) Additional Pharyngeal Impairment *Reduced base of tongue Observations strength which results in incomplete epiglottal inversion/airway protection *No epiglottic inversion for small bolus size (tsp); partial inversion for larger boluses *Laryngeal penetration x4 with large and/or consecutive swallows of thin liquid-PAS3 *Cues to clear throat/cough partially cleared laryngeal residue. Minimal spontaneous throat-clearing noted *Pharyngeal pooling noted in valeculla (as a result of incomplete epiglottal inversion), pyriforms, posterior pharyngeal wall; increased valecullar pooling following semi solid and solid trials - partially cleared with successive swallows; laryngeal penetration noted pooled contrast in valeculla- PAS 3 No tracheal aspiration observed A/P View Textures Administered Trials Presented Thin Liquid via Cup (IDDSI 0) The IDDSI Framework Protocol: IDDSI.1 A/P View Observations Esophageal Clearance Upright Position Esophageal retention Vocal Fold Function Good Esophageal Function Slowed Clearing,Poor Motility, Stasis,Narrowing Additional A-P Observations *Esophageal dysmotility noted when position changed from lateral to AP with *Esophageal retention noted mid-chest near aortic arch; partially cleared with water flush *Narrowing of [id number]-fs-[id number] esophagus with slow clearing of solid, semisolid residual. *Pt reported sensation of trials stuck in the sternal area. Pt stated this happens frequently when eating requiring conscious relaxing in order to aid in esophageal clearance. Clinical Impressions Dysphagia Type Pharyngeal,Esophageal Findings *See notes above for pharyngeal and esophageal phases of pt's swallow *Pt presents with moderate pharyngeal and esophageal dysphagia *GI referral recommended, given current results and pt report of prior EGD with dilation (8 years ago) *ST/Swallow therapy recommended for base of tongue exercise program as well as safe swallow education/ strategies Rehabilitation Potential Excellent Patient Appropriate for Therapy Yes Recommendations Diet Comments No change in diet recommended Treatment Plan Therapy Recommendations Outpatient Speech Therapy Recommended Referrals GI Consult Therapy Strategy Recommendations Alternate Liquids/Solids
== END ==
PROVIDERS: Family Provider Internal Medicine; PCP Internal Medicine; Referring Provider Internal Medicine; Visit Provider Internal Medicine
DX: R13.10 Dysphagia, unspecified (principal); R49.9 Unspecified voice and resonance disorder; R09.89 Other specified symptoms and signs involving the circulatory and respiratory systems
CPT/HCPCS: 74230; 92611

== ENCOUNTER 2024-07-04 06:18 | Day surgery (SDC) | payer OTHER, SELFPAY ==
[2024-06-29 12:15] VITALS: BMI 21.5
[2024-07-04] VITALS (16 sets, daily range): BP systolic 125–165; BP diastolic 66–88; PULSE 48–72; RESP 10–20; TEMP 35.8–37; O2SAT 95–100; BMI 21.2
--- NOTE | 2024-07-04 | PATH_ITS ---
[facility] Accession Number: [id number] No. of containers..01 Tissue . 01 Material submitted: . prostate - PROSTATE CHIPS . 01 Diagnosis: PROSTATE CHIPS, TRANSURETHRAL PROSTATE TISSUE RESECTION: Benign prostatic parenchyma, weight 3 grams, with mild chronic inflammation and nodular stromal/glandular hypertrophy. Benign overlying urothelial mucosa also present. Negative for high-grade prostatic intraepithelial neoplasia and invasive carcinoma. [facility] 07/06/2024 1057 Local . 01 Electronically signed: . Jayna Smith MD, Pathologist NPI- [id number] . 01 Gross description: . Received in formalin with two patient identifiers and prostate chips, are multiple norris soft tissue fragments with a moderate amount of hemorrhagic material weighing approximately 3 grams aggregating to 5.0 x 2.7 x 1.3 cm. Submitted entirely in cassettes A1-A3. ([id number]) /[facility] 07/05/2024 0831 Local . 01 Pathologist provided ICD-10: N40.1 . 01 CPT . 348728 Specimen Comment: A courtesy copy of this report has been sent to [phone] Performed at: [address] [id number] MD Jaylen Pennington MD Phone: [phone]
[2024-07-04] MEDS: LACTATED RINGERS 1,000 ML 21 ML IV (07:16)
[2024-07-04] MEDS: ACETAMINOPHEN 325 MG TABLET 975 MG PO (07:19)
--- NOTE | 2024-07-04 07:39 | PM.PREOP ---
Pre-operative Note COVID-19 COVID-19 status: Not tested Interval Note History & Physical reviewed/Exam performed by Physician: Yes Changes to H&P: No
[2024-07-04] MEDS: CEFAZOLIN 2 GM/100 ML PREMIX 100 ML IV (07:55)
--- NOTE | 2024-07-04 08:23 | SUR.OPER ---
Lithotomy on padded OR bed, head on pillow, arms secured on padded arm boards at <90 degrees abduction. Legs secured in padded yellow fins stirrups. Safety belt across abdomen. Upper body angelina hugger in place.
--- NOTE | 2024-07-04 09:50 | PM.OP.1 ---
Procedure & Clinicians Procedure: 1. Aquablation 2. Transrectal ultrasound of prostate 3. Transurethral resection of prostate with fulguration 4. Placement of Jordan catheter Same procedure as scheduled: Yes Indications: This 73-year-old male with profound benign prostatic hyperplasia with lower urinary tract symptoms failing medical management was worked up and found to be an excellent candidate for Aquablation. Patient wishes to proceed in that direction. Patient was found to have 122.7 g prostate with a median lobe that is slightly bulging into the bladder but filling the bladder outlet. Q max AUA symptom score uroflow and other parameters were included in the patient's history and physical. He presents at this time for Aquablation to relieve his outlet obstructive and lower urinary tract symptoms. Surgeon: John Paz Click Yes if Unassisted: Yes Anesthesia Type: General Operative Notes Findings: Urethral meatus is normal, urethra is normal along its length with normal mucosa, sphincter as well coapted. Prostate exhibits marked trilobar obstruction with a moderate-sized median lobe that fills the bladder outlet. Ureteral orifices in normal position with clear efflux. Severe trabeculation is noted no other abnormality is noted within the bladder. Ureteral orifices in normal position with clear efflux. At the end of the procedure they were unaffected and continue to have clear efflux. At the end of the procedure the prostatic fossa was widely patent hemostasis was good and the urine was light pink. A 22 [place] three-way 30 cc hematuria catheter was left in place with 45 cc in the balloon it was placed to gentle traction. Closure Type: not applicable Specimen(s): other (Prostate chips) Applied: catheter (22 [place] three-way 30 cc hematuria catheter with 45 cc in the balloon.) Estimated Blood Loss (mL): 75 Blood products transfused: none Procedure in detail: Procedure in detail: After informed consent was obtained, the patient was identified and brought to the operating room where he is placed in the supine position on the table. Once there anesthesia was induced and maintained. Ensuring an adequate level of anesthesia patient was transitioned of the lithotomy position where he was prepped. Ensuring an adequate level of anesthesia, after time-out, after administration of IV antibiotics 60 cc of ultrasound gel was instilled in the patient's rectum followed by the ultrasound probe. The ultrasound probe had been mounted to the trust effort which was mounted to the articulating arm which he had been secured to the bed. With the ultrasound probe in the rectum the ultrasound probe was aligned and confirmation made that the prostate was centered and aligned using both transverse and sagittal views. The bladder neck. Verumontanum central portion of the gland and sphincter were all identified. The prostate had previously been measured at 122.7 g. With this completed the patient was then draped in his sterile fashion. At this point the 24 [place] aqua beam handpiece was inserted through the urethra prostate and into the bladder under direct patient. Cystoscopy was performed. As the cystoscope was inserted again the external sphincter verumontanum mid prostate and bladder neck as well as bladder were identified via ultrasound and under direct vision and their positions marked. The aqua beam handpiece was then secured to the handpiece articulating arm which he had been secured to the bed. The alignment of the aqua beam handpiece and the truss was confirmed to show that they were parallel and colinear. The aqua beam handpiece nozzle was confirmed to be centered and anterior to the bladder neck. The cystoscope was then retracted with the irrigation on and visualizing the external sphincter and verumontanum the tip of the scope was placed proximal to the external sphincter. The alignment of the truss probe and aqua beam handpiece was once again confirmed and compression applied via the truss probe. The horizontal alignment of the handpiece water jet nozzle was confirmed and was noted to be at the 3 and 9 o'clock position. The treatment zones were then planned using real-time live ultrasound to visualize the prostate. In the in the largest transverse view the depth and radial angles were determined and entered into the software of the program. The Aquablation nozzle was then identified in his position registered with the software. The length of treatment was then marked and in the sagittal or longitudinal view the contours including the start of treatment bladder neck mid prostate and verumontanum were tip of the scope were marked and the treatment plan and intended margins of resection were identified. With the treatment plan confirmed and ensuring that the patient would not move the Aquablation treatment was started and resection continued including the view [place] him sparing cut. At this point a 2nd pass was deemed warranted and the treatment plan adjusted and the 2nd pass confirmed. Total Aquablation time 9 minutes. At this point the cystoscope was advanced to the tip of the aqua beam handpiece and the scope and handpiece were looked out. A resectoscope was then inserted with direct vision obturator through the urethra prostate and into the bladder. Ellik evacuator was then employed to evacuate clot and clear the bladder. The resecting element was then inserted and the ureteral orifices were then identified the bladder neck was then resected from the 2 to 11 o'clock position points of bleeding controlled with the electrocautery. Attention was then turned to the tissue anterior where there was noted some bleeding which was fulgurated with the electrocautery. Attention was then turned to the apical tissue at the level of the verumontanum there was some residual apical tissue which was easily resected. Ellik evacuator was then employed and the prostate chips and few remaining clots were evacuated. Once again the resecting element was inserted point of bleeding were controlled. There worrisome bleeding anteriorly which could not be reached because of impediment by the ultrasound probe at this point the ultrasound probe was removed from the rectum without incident. And the points of bleeding anteriorly at the 12 o'clock position in the bladder neck were controlled with electrocautery. At this point the urine was light pink the bladder was left full and with all fragments removed and hemostasis achieved the resectoscope was removed and the 22 [place] catheter placed with the aid of a catheter guide. The balloon was filled with 45 cc of sterile water and placed to CBI and gravity drainage. It was irrigated placed to gentle traction and the urine remained light pink. At this point the patient was awakened having tolerated the procedure well to be transferred to the postanesthesia care unit for recovery CBI will be continued in it determine nation made whether the patient has the come in overnight we will be directly discharged from the postanesthesia care unit. There were no complications Complications: none Post-operative Condition: stable Disposition: PACU Plan for aftercare: Patient will be recovered in the postanesthesia care unit and a determination made whether to be discharged directly order to be brought in for overnight continuous bladder irrigation.
--- NOTE | 2024-07-04 12:58 | SUR.PHASEII ---
Report called to Radha Colon
--- NOTE | 2024-07-04 13:20 | SUR.PHASEII ---
Patient transferred to the floor with his belongings bag. He was able to transfer to the bed independently. VS stable. Bedside report given to Radha Staton
--- NOTE | 2024-07-04 14:09 | PC.NURSE ---
Pt to room 213 via stretcher from PACU. Able to transfer self to bed without assistance. Denies pain, nausea, or shortness of breath. Bladder irrigation tapered down from full flow to slow drip and urine is currently grade III and without clots. Oriented Pt to room, call light, bed controls, and tv controls. SCD's on and running. Bed alarm is on for safety and Pt agrees to call for assistance as needed and to not get up without help.
[2024-07-04] MEDS: OXYBUTYNIN 5 MG TABLET PO (21:46)
[2024-07-04] MEDS: ATORVASTATIN 20 MG TABLET 10 MG PO (21:46)
[2024-07-04] MEDS: ACETAMINOPHEN 325 MG TABLET 650 MG PO (21:47)
[2024-07-05] VITALS: BP 126/67; PULSE 59; RESP 18; TEMP 36.1; O2SAT 97
[2024-07-05 05:52] VITALS: BP 130/67; PULSE 59; RESP 18; TEMP 36.4; O2SAT 100
--- NOTE | 2024-07-05 07:50 | P.PN_ITS ---
Subjective Subjective Date Patient Seen: 07/05/24 Time Patient Seen: 07:51 Interval history: This 73-year-old male had Aquablation yesterday and was brought in overnight for continuous bladder irrigation and this morning he is doing great he reports he had a good evening, no pain his urine is blush to perhaps at most light miller colored. And draining well he had no clots required no irrigation and his continuous bladder irrigation is at a minimum. He denies any abdominal pain. He has had minimal blood around his catheter. And at this point vital signs are stable within normal limits and he is ready for discharge. Exam Vital Signs (past 8 hours): - 07/05/24 00:00 07/05/24 05:52 Temperature 97 F L 97.6 F Pulse Rate 59 L 59 L Respiratory Rate 18 18 Blood Pressure 126/67 130/67 Pulse Oximetry 97 100 Oxygen Flow Rate 0 0 Oxygen Delivery Method Room Air Oxygen Flow Rate 0 Narrative Exam Narrative: General: This is an awake, alert, oriented male resting in his hospital bed who appears in no acute distress Lungs: Clear full and equal Abdominal exam: Soft, nontender, without mass Genitourinary exam: Circumcised phallus with Jordan catheter in place no blood at the meatus. Urine is as described above testicles are nontender and nonenlarged. Extremities normal. [facility] Medical History Thoracic aortic aneurysm (04/28/23) Normal cardiac ejection fraction (04/28/23) Slow urinary stream Incomplete emptying of bladder Primary osteoarthritis involving multiple joints Allergic rhinitis History of elevated PSA History of melanoma Diverticulosis Family history of colon cancer in mother GERD (gastroesophageal reflux disease) (~2010) Colon polyps (~2010) Skin cancer (~2020) Back pain, chronic Obstructive sleep apnea Left ACL tear Wrist fracture Golfer's elbow (2009) Degenerative joint disease of knee, right (1972) Shoulder pain (1994) Numerous moles Elevated PSA Diverticular disease (2002) Hypertension (2009) BPH (benign prostatic hyperplasia) (1999) Urinary incontinence Acne CTS (carpal tunnel syndrome) (1999) ADHD (attention deficit hyperactivity disorder) Osteoarthritis (1979) Hemorrhoids (~2020) Chicken pox (1959) Measles (8) Hayfever (2004) Surgical History History of lingual frenulectomy Status post Mohs surgery (~2020) Anesthesia complication Status post knee surgery (1989) Status post knee surgery (1978) Status post hernia repair (2009) Family History Brother Age: 77 Heart disease Hypertension High cholesterol Kidney stones Child Age: 40 Thyroid disorder Father Heart disease Hypertension Hyperlipidemia Alzheimer's disease Mother Cancer Heart disease Hypertension Hyperlipidemia Colon cancer UTI (urinary tract infection) Grandfather No problems noted. Grandmother No problems noted. Grandfather No problems noted. Grandmother No problems noted. 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 Verbal instructions were given to the patient and if he has any kind of distress today he has been instructed to call the office. He had been instructed to use Tylenol for any pain concerns. Patient is been informed that he will have increased amounts of blood in his urine in the drainage bag with activity and that if he seeing more and more blood he needs to decrease his activity. Time-Based Coding :: [TOTAL MINUTES] spent with patient and on the chart (including review of chart, obtaining history, exam, reviewing outside data, placing orders, documenting exam and treatment plan, and counseling patient) on [DATE].
--- NOTE | 2024-07-05 07:54 | P.DS_ITS ---
History of Present Illness History of Present Illness Date Patient Seen: 07/05/24 Time Patient Seen: 07:54 Date of Onset of Symptoms: 07/04/24 Chief complaint: Prostate Resection with Aquablation Narrative: This 73-year-old male underwent Aquablation yesterday in his urine had persistent hematuria on continuous bladder irrigation so he was brought in just overnight for irrigation. And his urine has anticipated cleared and he is ready for discharge. He was maintained on continuous bladder irrigation did not require any hand irrigation for clots in his urine in his cleared this morning. Discharge Providers Provider Discharge Date: 07/05/24 Primary care physician: Elvin Soto MD Discharge provider: John Paz MD Summary Hospital Course Discharge Diagnosis: BPH with lower urinary tract symptoms after irrigation with hematuria requiring continuous bladder irrigation. Hospital Course: Patient was brought from the postanesthesia care unit to the ladd on continuous bladder irrigation this was maintained and weaned off. Patient did not require any further hand irrigation. And is doing well vital signs are stable within normal limits patient's pain is well controlled he is ambulating without difficulty and he feels he is ready to go home he will be discharged to home. Status at Discharge Overall status at discharge: patient is back to baseline Time Spent with Patient Time spent: Less than 30 minutes Exam Vital Signs (past 8 hours): - 07/05/24 00:00 07/05/24 05:52 Temperature 97 F L 97.6 F Pulse Rate 59 L 59 L Respiratory Rate 18 18 Blood Pressure 126/67 130/67 Pulse Oximetry 97 100 Oxygen Flow Rate 0 0 Oxygen Delivery Method Room Air Oxygen Flow Rate 0 Narrative Exam Narrative: General: This is an awake, alert, oriented male in his hospital bed appears comfortable. Abdomen is soft nontender without mass Jordan catheters in place with blush to perhaps light miller colored urine extremities are normal. [facility] Medical History Thoracic aortic aneurysm (04/28/23) Normal cardiac ejection fraction (04/28/23) Slow urinary stream Incomplete emptying of bladder Primary osteoarthritis involving multiple joints Allergic rhinitis History of elevated PSA History of melanoma Diverticulosis Family history of colon cancer in mother GERD (gastroesophageal reflux disease) (~2010) Colon polyps (~2010) Skin cancer (~2020) Back pain, chronic Obstructive sleep apnea Left ACL tear Wrist fracture Golfer's elbow (2009) Degenerative joint disease of knee, right (1972) Shoulder pain (1994) Numerous moles Elevated PSA Diverticular disease (2002) Hypertension (2009) BPH (benign prostatic hyperplasia) (1999) Urinary incontinence Acne CTS (carpal tunnel syndrome) (1999) ADHD (attention deficit hyperactivity disorder) Osteoarthritis (1979) Hemorrhoids (~2020) Chicken pox (1959) Measles (1957) Hayfever (2004) Surgical History History of lingual frenulectomy Status post Mohs surgery (~2020) Anesthesia complication Status post knee surgery (1989) Status post knee surgery (1978) Status post hernia repair (2009) Family History Brother Age: 77 Heart disease Hypertension High cholesterol Kidney stones Child Age: 40 Thyroid disorder Father Heart disease Hypertension Hyperlipidemia Alzheimer's disease Mother Cancer Heart disease Hypertension Hyperlipidemia Colon cancer UTI (urinary tract infection) Grandfather No problems noted. Grandmother No problems noted. Grandfather No problems noted. Grandmother No problems noted. 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 Discharge Plan Discharge Plan Patient Disposition: Home Provider Discharge Comment: At home the patient should expect blood in his urine perhaps some clots. This will increase with activity. Patient should increase his fluid intake to ?flush things through?. Patient should refrain from heavy lifting, strenuous or vigorous activity until released by me. Patient should take sponge baths only till his catheter was removed, patient may resume his regular diet. Patient should contact my office today should he have any trouble and will have an appointment tomorrow morning for catheter removal. Patient has been given verbal instructions. He should clean around his catheter should he develop crusting with a 50 50 mixture of hydrogen peroxide and water and then apply bacitracin ointment. Nursing Discharge Comment: Please refrain from using ibuprofen/mot rin/advil/aleve products until after your follow-up appointment. You may use tylenol every 4 to 6 hours as needed for pain. You had your first dose of Tylenol at 0700 this morning. Hydration is very important after this procedure so please increase your fluid intake. Avoid cranberry juice if possible. Okay to drink coffee, tea, water, other juices. No driving or drinking alcohol. Okay to shower with your catheter in place in 24 hours. Pat the bag dry after your shower. If your catheter becomes clogged, follow the instructions provided to you to relieve the clot. If unsuccessful, please return to the emergency department. If the tip of your penis becomes dry, you can clean with warm soap and water and coat with petroleum jelly or bacitracin. DO NOT USE NEOSPORIN. Discharge orders & Medications Discharge Orders: Discharge (Order); Ordered 07/05/24 Ordered By: John Paz Prescriptions: Continued ketoconazole 2 % cream 1 applic TOP DAILY Qty: 60 1RF Rx Instructions: apply to toes once a day atorvastatin 10 mg tablet 10 mg PO BEDTIME Qty: 90 3RF losartan 50 mg tablet 50 mg PO DAILY Qty: 90 3RF valacyclovir 1 gram tablet 1,000 mg PO Q12H Qty: 14 1RF omega 9-dwl-hmk-fish oil [Fish Oil] 1,200 (144-216) mg capsule 1 cap PO DAILY whey protein concentrate 24 gram-120 kcal/30 gram powder 24 ea PO DAILY hydrocortisone 2.5 % cream 1 applic topical BID Follow up/Referrals: Elvin Soto MD [Primary Care Provider] - John Paz MD [Physician] - Diet/Activity/Treatments Diet: Diet as Tolerated Catheter: 3-way Jordan Visit Report/Discharge Packet Instructions: How to Care for Your Jordan Catheter -- Male, DI for Transurethral Resection of the Prostate, DI for Constipation, How to Prevent Falls Stand Alone Forms: Patient Portal/API, Stroke Signs & Symptoms Discharge Data Primary Care Provider: Elvin Soto V Attending Provider: John Paz
[2024-07-05 08:44] VITALS: BP 129/43; PULSE 54; RESP 14; TEMP 36.8; O2SAT 100
[2024-07-05] MEDS: LOSARTAN 50 MG TABLET PO (09:28)
[2024-07-05] MEDS: OXYBUTYNIN 5 MG TABLET PO (09:28)
[2024-07-05] MEDS: PHENAZOPYRIDINE 100 MG TABLET 200 MG PO (09:28)
--- NOTE | 2024-07-05 11:12 | CM.DANOTE ---
Initial DCP Assessment Note Pt is a 73 yo male, resident of [place], now POD#1 from Prostate Resection with Aquablation. PCP: Elvin Soto Payer: Chiki GUTIERRES Reviewed chart, pt discussed in multidisciplinary rounds this morning. Patient is doing well post operatively and has been discharged home by Dr Paz. No barriers identified at this time to patient's safe discharge home w/family to assist; close outpatient f/u recommended. CM team will plan to follow clinical course closely in case any DC needs or concerns arise. 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 P Advance Directives? Yes Advance Directives on File No History Provided By Patient,Medical Record Prior Living Arrangements House Household Members spouse Type of transporation used prior to Drives own vehicle admit Independent with ADL's Yes Is patient alert and oriented? Yes Barriers to Discharge No Discharge Plan Home Transportation Arrangement Spouse Referrals Initiated None needed
--- NOTE | 2024-07-05 12:38 | PC.NURSE ---
Discharge, pt feel ready for d/c to home. Seen by MD Paz and given discharge instructions. CBI stopped and end plugged. Reviewed stephenson cath care. Pt has had sl leaking of blood at the meatus. He will be keeping the stephenson in until tomorrow and they will take out at the office. Discharge packet reviewed w/pt by Charles JACOB. Pt d/c to home via auto with spouse.
== END 2024-07-05 12:05 | disposition home or self-care (01) ==
LOC: OR 10:41 → AC 13:13
PROVIDERS: Family Provider Internal Medicine; PCP Internal Medicine; Referring Provider Urology; Visit Provider Urology
PROC: 0VT08ZZ Resection of Prostate, Via Natural or Artificial Opening Endoscopic (ICD-10-PCS; CPT 0421T; principal; 2024-07-04 07:45)
DX: N40.1 Benign prostatic hyperplasia with lower urinary tract symptoms (principal); R33.9 Retention of urine, unspecified; R39.198 Other difficulties with micturition
CPT/HCPCS: 0421T; C2596; J0330; J0690; J1100; J1171; J2405; J2704; J3010

== ENCOUNTER → 2024-07-06 16:19 | Outpatient (CLI) | payer OTHER, SELFPAY ==
[2024-07-04 13:29] VITALS: BMI 21.2
[2024-07-06 16:53] LABS: Appearance Urine UA CLOUDY; Bilirubin Urine UA 1+ (NEGATIVE); Glucose Urine UA NEGATIVE (Negative); Ketones Urine UA NEGATIVE (NEGATIVE); Leukocyte Esterase Urine UA 1+ (NEGATIVE); Nitrite Urine UA NEGATIVE (Negative); Occult Blood Urine UA 3+ (Negative); Protein Urine UA 2+ (Negative); Specific Gravity Urine UA 1.015 (1.000-1.035)
[2024-07-06 17:40] LABS: Bacteria Urine Few (2-10); Color Urine UA RED; Culture Indicated Urine Specimen Cultured; Ictotest Urine Negative (Negative); RBC Urine >100/HPF (0-5/HPF); Squamous Epithelial Cell Urine 0-1 /HPF (0-5/HPF); Urine Volume 10mL (spun); WBC Urine 1-5/HPF (0-5/HPF)
== END ==
PROVIDERS: Family Provider Internal Medicine; PCP Internal Medicine; Visit Provider Urology
DX: N40.1 Benign prostatic hyperplasia with lower urinary tract symptoms (principal); Z87.898 Personal history of other specified conditions
CPT/HCPCS: 81001; 87086

== ENCOUNTER → 2024-07-18 13:22 | Outpatient (CLI) | payer OTHER, SELFPAY ==
[2024-07-04 13:29] VITALS: BMI 21.2
[2024-07-18 13:36] LABS: Bilirubin Urine UA NEGATIVE (NEGATIVE); Glucose Urine UA NEGATIVE (Negative); Ketones Urine UA NEGATIVE (NEGATIVE); Leukocyte Esterase Urine UA 2+ (NEGATIVE); Nitrite Urine UA NEGATIVE (Negative); Occult Blood Urine UA 3+ (Negative); Protein Urine UA 2+ (Negative); Specific Gravity Urine UA 1.015 (1.000-1.035); Urobilinogen Urine UA 0.2 E.U./dL (0.2)
[2024-07-18 13:40] LABS: Appearance Urine UA Slightly Cloudy; Color Urine UA RED
[2024-07-18 13:56] LABS: Bacteria Urine Few (2-10); Culture Indicated Urine Specimen Cultured; RBC Urine >100/HPF (0-5/HPF); Squamous Epithelial Cell Urine None Seen (0-5/HPF); Urine Volume 10mL (spun); WBC Urine 5-10/HPF (0-5/HPF)
== END ==
PROVIDERS: Family Provider Internal Medicine; PCP Internal Medicine; Referring Provider Urology; Visit Provider Urology
DX: N40.1 Benign prostatic hyperplasia with lower urinary tract symptoms (principal); Z87.898 Personal history of other specified conditions
CPT/HCPCS: 81001; 87086

== ENCOUNTER → 2024-08-08 13:39 | Outpatient (CLI) | payer OTHER, SELFPAY ==
[2024-07-04 13:29] VITALS: BMI 21.2
== END ==
PROVIDERS: Family Provider Internal Medicine; PCP Internal Medicine; Visit Provider Urology
DX: N40.1 Benign prostatic hyperplasia with lower urinary tract symptoms (principal); R39.198 Other difficulties with micturition; R33.9 Retention of urine, unspecified; R35.1 Nocturia; Z87.898 Personal history of other specified conditions
CPT/HCPCS: 51798; 81002; 87086

== ENCOUNTER → 2024-09-07 14:10 | Outpatient (CLI) | payer OTHER, SELFPAY ==
[2024-07-04 13:29] VITALS: BMI 21.2
== END ==
PROVIDERS: Family Provider Internal Medicine; PCP Internal Medicine; Referring Provider Urology; Visit Provider Urology
DX: Z87.898 Personal history of other specified conditions (principal)
CPT/HCPCS: 87086